=== PATIENT | female | born 1950 | race Caucasian/White ===

== ENCOUNTER 2017-08-29 21:34 | Emergency (ER) | payer OTHER, SELFPAY ==
--- NOTE | 2017-08-29 21:47 | DI.CT.S_ITS ---
PROCEDURE: CT HEAD/BRAIN WO CON INDICATIONS: seizure activity TECHNIQUE: Noncontrast 4.5 mm thick angled axial sections acquired from the foramen magnum to the vertex, with coronal and sagittal reformats. For radiation dose reduction, the following was used: automated exposure control, adjustment of mA and/or kV according to patient size. COMPARISON: Merged With [facility], MR, BRAIN WITHOUT CONTRAST, 12/17/2015, 17:40. Merged With [facility], CT, HEAD WITHOUT CONTRAST, 12/02/2015, 14:15. FINDINGS: Image quality: Excellent. CSF spaces: Basal cisterns are patent. No extra-axial fluid collections. The ventricles are symmetric in size and shape. Brain: No intracranial bleeds or masses. There is mild cerebral volume loss for age, with resultant ventricular and sulcal prominence. There are mild periventricular and deep white matter chronic small vessel ischemic changes. There is intracranial internal carotid artery atherosclerosis. Skull and face: Calvarium and visualized facial bones appear intact, without suspicious lesions. Sinuses: There is mucosal thickening and an air-fluid level in the left maxillary sinus. sinuses and mastoids are clear. IMPRESSION: 1. No acute intracranial abnormalities. No findings to explain seizure. 2. Cerebral volume loss and chronic microvascular ischemic changes. 3. Left maxillary sinusitis. No significant discrepancy with the shift production associate radiology preliminary report. Dictated by: Lata Tadeo M.D. on 08/30/2017 at 6:11 Approved by: Lata Tadeo M.D. on 08/30/2017 at 10:32
[2017-08-29] MEDS: LORazepam 2 MG/ML SYRINGE 4 MG IV (21:48)
[2017-08-29 21:49] VITALS: BP 195/84; PULSE 101; RESP 14; TEMP 37; O2SAT 93; BMI 24.1
--- NOTE | 2017-08-29 21:58 | PC.NURSE ---
2133: Code Stroke called on arrival to room for R facial droop, incomprehensible garbled speech, and RUE weakness, pt obeying simple commands. With h/o seizures and takes Keppra daily. Dr torres at bedside. About 2137 pt started to have seizure like activity with mild tonic clonic movement. pt placed on side and NRB at 15L/min applied. Given Ativan 2mg IVP and seizure pads in place. Pt started to calm. Airway suctioned. Dr Torres remains at side, placed on monitor and blood drawn. Hypertensive with BP 195/84. ST 104. At 2147 2nd dose of Ativan 2mg given for seizure like activity, pt extremities became rigid and pupils constricted. 7.0 nasal trumpet placed by this RN in R nare for decreasing O2 sat. Pt tolerated well, 100% via NRB. Placed on portable monitor and assisted down to CT with REYNA Mendez and Joleen Raygoza RN. 2205: arrived back from CT and moved to 1. at side. Pt appears drowsy yet relaxed, no twitching noted. reports she takes her Keppra religiously and this is only the 2nd seizure she has had since November 2015. Airway suctioned for comfort. BP 166/68 HR 100 100% NRB
[2017-08-29] MEDS: levETIRAcetam 500 MG in SODIUM CHLORIDE 0.9% 100 ML 420 ML IV (22:12)
[2017-08-29 22:14] VITALS: RESP 16; O2SAT 100
[2017-08-29 22:16] LABS: Add Manual Diff / Slide Review NO; Alanine Aminotransferase 32 IU/L (9-52); Albumin 4.5 g/dL (3.5-5.0); Albumin Globulin Ratio 1.6 (1.0-2.8); Alkaline Phosphatase 70 U/L (38-126); Aspartate Aminotransferase 57 IU/L (14-36); BUN Creatinine Ratio 22.5 (6-22); Basophils Percent Auto 0.9 % (0-2); Bilirubin Total 0.4 mg/dL (0.2-1.3); Blood Urea Nitrogen 18 mg/dL (7-17); Calcium 9.1 mg/dL (8.4-10.2); Carbon Dioxide 26 mmol/L (22-32); Chloride 98 mmol/L (98-107); Eosinophils Percent Auto 3.1 % (2-4); Estimated Glomerular Filt Rate > 60.0 mL/min (>60); Globulin 2.9 g/dL (1.7-4.1); Glucose 178 mg/dL (80-110); HEMOLYSIS 19 (0-50); Hematocrit 43.3 % (36-46); Hemoglobin 14.4 g/dL (12.0-16.0); Lipase 74 U/L (23-300); Lymphocytes Percent Auto 41.2 % (25-40); Mean Corpuscular HGB Conc 33.3 % (30-36); Mean Corpuscular Hemoglobin 31.9 PG (26-34); Mean Corpuscular Volume 95.7 fL (80-100); Monocytes Percent Auto 6.9 % (3-14); Neutrophils Absolute Auto 7300 /uL (3000-5900); Neutrophils Percent Auto 47.9 % (50-75); Platelet Count 275 X10^3/uL (150-400); Potassium 3.5 mmol/L (3.4-5.1); Red Blood Cell Count 4.53 X10^6/uL (4.0-5.2); Red Cell Distribution Width 12.7 % (11.6-14.8); Sodium 138 mmol/L (137-145); Total Protein 7.4 g/dL (6.3-8.2); White Blood Cell Count 15.2 X10^3/uL (4.5-11.0)
[2017-08-29 22:18] VITALS: BP 166/68; PULSE 102; RESP 20; O2SAT 100
--- NOTE | 2017-08-29 22:19 | ED_ITS ---
HPI - Seizure General Chief Complaint: Seizure Stated Complaint: Poss Seizure Time Seen by Provider: 08/29/17 21:59 Source: family and EMS Mode of arrival: EMS Limitations: altered mental status History of Present Illness HPI Narrative: 66-year-old female brought in by EMS for concerns of a possible seizure/stroke. Code stroke was called upon arrival secondary to her presentation. Upon my initial evaluation the patient did have what appeared to be a generalized tonic-clonic seizure. Her arrived shortly afterwards and provided more history. He states that the patient had what appeared to be focal seizures progressing to a generalized tonic-clonic seizure back at the end of 2015. He states that she saw a neurologist at that time and was placed on Keppra. He states that she is taking Keppra 500 mg 2 times a day. He states that she did take her medication today. He states that she has not had a seizure since then. Had an EEG performed at that time which he states ?was normal? she has not seen a neurologist since then. Her Keppra is managed by her primary care doctor. Patient's states that earlier today the patient described and a ?aura ?and 1 of her eyes. Patient also has a history of migraines. She states that as the day went on that or a improved however shortly before the events that brought her here to the emergency department she described an aura in the other eye. Uncertain as to what side this was. He states that shortly after this he thought that side of her face was drooping and she started to not acting normal. Was not responding to his questioning that he called EMS. Patient's blood sugar was greater than 100 per EMS report prior to arrival. No medications were given by EMS. Related Data Home Medications Medication Instructions Recorded Confirmed [Biest] 0.25 mg SUBLINGUAL BID #8 ml 12/29/16 Previous Rx's Medication Instructions Recorded lorazepam [Ativan] 0.5 mg PO Q6HP #5 tab 12/02/15 levothyroxine 0.05 mg PO QAM #90 tab 01/09/17 liothyronine [Cytomel] 5 mcg PO QAM #90 tab 01/09/17 [progesterone] 1 mg SEECOM BID #60 drp 02/21/17 levetiracetam [Keppra] 500 mg PO BID #180 tab 07/14/17 Allergies Allergy/AdvReac Type Severity Reaction Status Date / Time Sulfa (Sulfonamide Allergy Unknown Unverified 07/12/17 12:27 Antibiotics) [SULFA (SULFONAMIDE ANTIBIOTICS)] Review of Systems Review of Systems Unable to obtain review of systems from the patient secondary to clinical condition. Review of systems provided by are in HPI. unobtainable due to mental condition PFSH Surgical History Status post hysterectomy with oophorectomy Family History Grandmother Heart disease Exam Initial Vital Signs Initial Vital Signs: Vital Signs Temperature 98.6 F 08/29/17 21:49 Pulse Rate 101 H 08/29/17 21:49 Respiratory Rate 14 08/29/17 21:49 Blood Pressure 195/84 H 08/29/17 21:49 Pulse Oximetry 93 08/29/17 21:49 Const General: well developed, well groomed and in distress Nutritional Appearance: average body habitus Orientation: confused Limitations: altered mental status HENID Head: normal to inspection, normocephalic and atraumatic Resp Effort & Inspection: normal respiratory effort, able to speak in complete sentences, no respiratory distress and no use of accessory muscles Auscultation: clear to auscultation bilaterally, no rales, no rhonchi and no wheezes Cardio Rate: regular rate Rhythm: regular rhythm Heart Sounds: no click, no gallops, no murmurs and no rubs Pulses: normal peripheral pulses GI Inspection: normal to inspection Palpation: soft Skin General: no rashes or lesions noted, No jaundice and No petechiae Neuro Other: Patient unable to answer questions Did not follow commands Did spontaneously move all 4 extremities during my initial evaluation however there was some question as to whether not this was purposeful movements She would not squeeze her hands to command Would not move her legs to command Extrem General: normal to inspection and capillary refill normal Psych Appearance: grossly normal and well kempt Course Orders Ordered: ED Orders 08/29/17 21:45 Complete Blood Count AUTO DIFF Stat Comprehensive Metabolic Panel Stat Lipase Stat Prolactin Stat 08/29/17 21:47 CT head/brain wo con Stat 08/29/17 22:10 Ammonia (NH3) Stat Discontinued Medications Levetiracetam 500 mg/ Sodium (Chloride) 105 mls @ 420 mls/hr IV NOW ONE Stop: 08/29/17 21:48 Last Infusion: 08/29/17 22:33 Dose: 0 mls/hr Admin: 08/29/17 22:12 Dose: 420 mls/hr Lorazepam (Ativan) 4 mg IV NOW ONE Stop: 08/29/17 22:01 Last Admin: 08/29/17 21:48 Dose: 4 mg Vital Signs - 8 hr 08/29/17 21:49 08/29/17 22:14 08/29/17 22:18 Temperature 98.6 F Pulse Rate 101 H 102 H Respiratory Rate 14 16 20 Blood Pressure 195/84 H Blood Pressure [Left Arm] 166/68 H Pulse Oximetry 93 100 100 08/29/17 22:36 08/29/17 23:45 08/30/17 00:21 Temperature Pulse Rate 98 H 96 H 80 Respiratory Rate 20 25 H 29 H Blood Pressure Blood Pressure [Left Arm] 148/67 H 138/61 H 131/61 H Pulse Oximetry 100 92 93 MDM - Seizure Lab Data Attestation: I reviewed the patient's lab results. Result diagrams: 08/29/17 21:45 08/29/17 21:45 Lab Results 08/29/17 08/29/17 08/29/17 Range/Units 21:45 21:45 22:10 WBC 15.2 H (4.5-11.0) X10^3/uL RBC 4.53 (4.0-5.2) X10^6/uL Hgb 14.4 (12.0-16.0) g/dL Hct 43.3 (36-46) % MCV 95.7 (80-100) fL MCH 31.9 (26-34) PG MCHC 33.3 (30-36) % RDW 12.7 (11.6-14.8) % Plt Count 275 (150-400) X10^3/uL Neut % (Auto) 47.9 L (50-75) % Lymph % (Auto) 41.2 H (25-40) % [place] % (Auto) 6.9 (3-14) % Eos % (Auto) 3.1 (2-4) % Baso % (Auto) 0.9 (0-2) % Neut # (Auto) 7300 H (6703-7284) /uL Sodium 138 (137-145) mmol/L Potassium 3.5 (3.4-5.1) mmol/L Chloride 98 (98-107) mmol/L Carbon Dioxide 26 (22-32) mmol/L BUN 18 H (7-17) mg/dL Creatinine 0.80 (0.52-1.04) mg/dL Estimated GFR > 60.0 (>60) mL/min BUN/Creatinine Ratio 22.5 H (6-22) Glucose 178 H (80-110) mg/dL Calcium 9.1 (8.4-10.2) mg/dL Total Bilirubin 0.4 (0.2-1.3) mg/dL AST 57 H (14-36) IU/L ALT 32 (9-52) IU/L Alkaline Phosphatase 70 (38-126) U/L Ammonia 15.0 (9-30) umol/L Total Protein 7.4 (6.3-8.2) g/dL Albumin 4.5 (3.5-5.0) g/dL Globulin 2.9 (1.7-4.1) g/dL Albumin/Globulin Ratio 1.6 (1.0-2.8) Lipase 74 (23-300) U/L Prolactin 114.5 H (3.0-18.6) ng/mL Imaging Data CT scan - head: Radiologist's impression: No acute abnormality Chronic microvascular disease MDM Narrative Medical decision making narrative: Some concern initially upon arrival of a stroke and a code stroke was called however during my initial evaluation patient did progress to have a generalized tonic-clonic seizure. She was given 2 mg of Ativan IV. This did seem to slow the seizures however she did seem fairly rigid and had occasional rhythmic motion specifically noted in her right lower extremity. Two more mg of Ativan was given IV which seemed to resolve those symptoms. She was also given 500 mg of Keppra IV. provided much of the history. Secondary to the history and her physical exam and a negative head CT I have lower concern for CVA. Will hold on tPA. Will hold on neurology /stroke consult for now. Patient was sedated afterwards most likely secondary to being postictal and also the Ativan. Discussed the case with at [facility] who accepts the patient in transfer. Patient is stable for transport. Discussed transport with the who expressed understanding and agreement. Discharge Plan Departure Patient Disposition: [facility] Clinical Impression: Observed seizure-like activity Prescriptions: No Action lorazepam [Ativan] 0.5 MG tablet 0.5 mg PO Q6HP Qty: 5 RF: 0 [Biest] 0.25 mg Sublingual BID Qty: 8 RF: 12 liothyronine [Cytomel] 5 MCG tablet 5 mcg PO QAM Qty: 90 RF: 3 levothyroxine 50 MCG tablet 0.05 mg PO QAM Qty: 90 RF: 3 [progesterone] 1 mg SEECOM BID Qty: 60 RF: 11 levetiracetam [Keppra] 500 MG tablet 500 mg PO BID Qty: 180 RF: 1
--- NOTE | 2017-08-29 22:27 | PC.NURSE ---
Pt placed on ETCO2 upon moving into Rm 1. Range between 30-41. Keppra infusion complete.
[2017-08-29 22:33] LABS: Prolactin 114.5 ng/mL (3.0-18.6)
[2017-08-29 22:36] VITALS: BP 148/67; PULSE 98; RESP 20; O2SAT 100
[2017-08-29 23:45] VITALS: BP 138/61; PULSE 96; RESP 25; O2SAT 92
[2017-08-30 00:21] VITALS: BP 131/61; PULSE 80; RESP 29; O2SAT 93
[2017-08-30] MEDS: LORazepam 2 MG/ML SYRINGE IV (00:45)
[2017-08-30 01:15] VITALS: BP 136/64; PULSE 80; RESP 21; O2SAT 95
--- NOTE | 2017-08-30 01:36 | PC.NURSE ---
Dr Torres aware of CO2
[2017-08-30 01:45] LABS: HCO3 ABG 29 mmol/L (23-27); PCO2 ABG 50.5 mmHg (35-45); PO2 ABG 71 mmHg (80-105); TCO2 ABG 31 mmol/L (23-27); pH ABG 7.37 (7.35-7.45)
[2017-08-30 01:46] LABS: Oxygen Saturation ABG 93 % (95-100)
[2017-09-14 16:05] LABS: Fractionated Inspired Oxygen 40
== END 2017-08-30 01:25 | disposition short-term general hospital (02) ==
PROVIDERS: Emergency Provider Emergency Medicine; Family Provider Family Medicine; PCP Family Medicine
DX: R56.9 Unspecified convulsions (principal)
CPT/HCPCS: 36415; 36600; 70450; 80053; 82140; 82805; 83690; 84146; 85025; 93041; 96365; 96375; 96376; 99285; 99291; 99292; J1953; J2060

== ENCOUNTER → 2017-10-11 12:00 | Outpatient (CLI) | payer OTHER, SELFPAY ==
[2017-10-11 12:44] LABS: Hemoglobin A1C% w Est Avg Glu 5.2 % (4.0-6.0)
== END ==
PROVIDERS: Family Provider Family Medicine; PCP Family Medicine; Visit Provider Internal Medicine
DX: R73.9 Hyperglycemia, unspecified (principal)
CPT/HCPCS: 36415; 83036

== ENCOUNTER 2017-10-30 18:57 | Emergency (ER) | payer OTHER, SELFPAY ==
[2017-10-30 19:09] VITALS: BP 180/79; PULSE 73; RESP 16; TEMP 36.6; O2SAT 100; BMI 21.9
--- NOTE | 2017-10-30 19:20 | ED_ITS ---
HPI - General Adult <Tressa Hernandez PA-C - Last Filed: 10/30/17 22:09> General Chief complaint: Hypertension Stated complaint: STATES ELEVATED BLOOD PRESSURE Time Seen by Provider: 10/30/17 19:16 Source: patient, family and old records reviewed Mode of arrival: ambulatory Limitations: no limitations History of Present Illness HPI narrative: This 67-year-old female comes in today with complaint of elevated blood pressure and ?I just do not feel right?. She states that her blood pressure was 193/87 at home this morning. She has been on amlodipine for 2-3 weeks for hypertension, and has been taking 5 mg at HS, took another 5 mg this morning. She denies any new chest pain (states she has some chronic pain associated with her fibromyalgia but none today), dyspnea, or palpitations. She denies any abdominal pain or vomiting. She has had some ongoing mild nausea and what she describes as lightheadedness, just not quite feeling like herself. These occur intermittently. She cannot think of specific exacerbating or alleviating factors. She has been eating normally. She states that this does not correlate with starting the amlodipine. She started higher dose of Keppra, 1000 mg b.i.d., 2 months ago, and her thinks that the symptoms probably correlate time pavon with that dose increase as he states these have been occurring since hospital discharge. She has not had recurrent seizure. She has not had any focal weakness, difficulty with speech, swallowing, coordination , or vision change. She denies any new pain or swelling in her extremities. She states that she has had some increased bowel gas, no change in bowel movements or other new complaints on systems review. Blood pressure at her primary care clinic visit 10/11 noted 184/95. Related Data Home Medications Medication Instructions Recorded Confirmed [Biest] 0.25 mg SUBLINGUAL BID #8 ml 12/29/16 10/11/17 Previous Rx's Medication Instructions Recorded levothyroxine 0.05 mg PO QAM #90 tab 01/09/17 liothyronine [Cytomel] 5 mcg PO QAM #90 tab 01/09/17 [progesterone] 1 mg SEECOM BID #60 drp 02/21/17 levetiracetam 1,000 mg tablet 1,000 mg PO Q12H #60 tab 09/06/17 amlodipine 5 mg tablet 5 mg PO DAILY #30 tab 10/11/17 Allergies Allergy/AdvReac Type Severity Reaction Status Date / Time Sulfa (Sulfonamide Allergy Unknown Verified 10/11/17 10:46 Antibiotics) [SULFA (SULFONAMIDE ANTIBIOTICS)] Review of Systems <Tressa Hernandez PA-C - Last Filed: 10/30/17 22:09> Review of Systems All systems reviewed & are unremarkable except as noted in HPI and below PFSH <Tressa Hernandez PA-C - Last Filed: 10/30/17 22:09> Comment: Thirty pack-years tobacco, quit approximately 1999. ETOH 1-3 daily, regular THC use Exam <CHARIS Vargas Last Filed: 10/30/17 22:09> Narrative Exam Narrative: GENERAL APPEARANCE: Patient sitting comfortably, in no distress. HEENT: PERRL, EOMI NECK/THYROID: Neck supple, no JVD. LUNGS: Clear to auscultation bilaterally. HEART: Regular rate and rhythm without murmur, normal S1, S2, no S3 or S4. ABDOMEN: Soft, NT, ND, + BS x 4 quadrants EXTREMITIES: No cyanosis or edema. No calf tenderness NEUROLOGIC: Alert and oriented, normal speech and coordination. DERM: No exanthem Initial Vital Signs Initial Vital Signs: Vital Signs Temperature 97.9 F 10/30/17 19:09 Pulse Rate 73 10/30/17 19:09 Respiratory Rate 16 10/30/17 19:09 Blood Pressure 180/79 H 10/30/17 19:09 Pulse Oximetry 100 10/30/17 19:09 <Lorena Hannon DO - Last Filed: 10/31/17 04:10> Initial Vital Signs Initial Vital Signs: Vital Signs Temperature 97.9 F 10/30/17 19:09 Pulse Rate 73 10/30/17 19:09 Respiratory Rate 16 10/30/17 19:09 Blood Pressure 180/79 H 10/30/17 19:09 Pulse Oximetry 100 10/30/17 19:09 Scores <CHARIS Vargas Last Filed: 10/30/17 22:09> ABCD2 Age >= 60 years: yes Course <CHARIS Vargas Last Filed: 10/30/17 22:09> Additional Information: Patient was asymptomatic here aside from a brief episode of nausea which resolved with Zofran. Her EKG was repeated and no acute changes. She does have elevated blood pressure, not sure whether this is correlated with increasing her Keppra but she has been intermittently symptomatic for at least a month per her history, 2 per her 's recollection. Her nausea and lightheadedness appear to correlate time pavon with her dose change. She is concerned that there could be another source, however given the longevity of her symptoms and lack of acute findings today, advised reasonable for her to return home with outpatient follow-up. She is agreeable with plan to return if any acutely worsening symptoms. Advised to work with her PCP to determine whether perhaps she can be monitored with a smaller dose of Keppra, and whether any further workup is needed such as a Holter monitor or further cardiac w/u given her age and BP. Orders Ordered: ED Orders 10/30/17 19:19 EKG-12 Lead Stat 10/30/17 20:11 Complete Blood Count AUTO DIFF Stat Comprehensive Metabolic Panel Stat Troponin & CK Cardiac Panel Stat 10/30/17 21:02 EKG-12 Lead Stat Discontinued Medications Ondansetron HCl (Zofran Odt) 4 mg PO NOW ONE Stop: 10/30/17 20:52 Last Admin: 10/30/17 20:53 Dose: 4 mg Vital Signs - 8 hr 10/30/17 20:25 10/30/17 21:39 Temperature 97.6 F Pulse Rate 55 L 60 Respiratory Rate 18 16 Blood Pressure [Left Arm] 145/66 H 180/56 H Pulse Oximetry 100 97 <Lorena Hannon DO - Last Filed: 10/31/17 04:10> Orders Ordered: ED Orders 10/30/17 19:19 EKG-12 Lead Stat 10/30/17 20:11 Complete Blood Count AUTO DIFF Stat Comprehensive Metabolic Panel Stat Troponin & CK Cardiac Panel Stat 10/30/17 21:02 EKG-12 Lead Stat Discontinued Medications Ondansetron HCl (Zofran Odt) 4 mg PO NOW ONE Stop: 10/30/17 20:52 Last Admin: 10/30/17 20:53 Dose: 4 mg Vital Signs - 8 hr 10/30/17 20:25 10/30/17 21:39 Temperature 97.6 F Pulse Rate 55 L 60 Respiratory Rate 18 16 Blood Pressure [Left Arm] 145/66 H 180/56 H Pulse Oximetry 100 97 Medical Decision Making <Tressa Hernandez PA-C - Last Filed: 10/30/17 22:09> Lab Data Lab results reviewed: Yes I reviewed the patient's lab results. Result diagrams: 10/30/17 20:11 10/30/17 20:11 Lab Results 10/30/17 10/30/17 Range/Units 20:11 20:11 WBC 7.7 (4.5-11.0) X10^3/uL RBC 4.44 (4.0-5.2) X10^6/uL Hgb 14.2 (12.0-16.0) g/dL Hct 41.8 (36-46) % MCV 94.2 (80-100) fL MCH 31.9 (26-34) PG MCHC 33.9 (30-36) % RDW 12.8 (11.6-14.8) % Plt Count 271 (150-400) X10^3/uL Neut % (Auto) 79.3 H (50-75) % Lymph % (Auto) 13.9 L (25-40) % [place] % (Auto) 6.0 (3-14) % Eos % (Auto) 0.2 L (2-4) % Baso % (Auto) 0.6 (0-2) % Neut # (Auto) 6100 H (1051-4148) /uL Sodium 137 (137-145) mmol/L Potassium 4.2 (3.4-5.1) mmol/L Chloride 98 (98-107) mmol/L Carbon Dioxide 28 (22-32) mmol/L BUN 12 (7-17) mg/dL Creatinine 0.60 (0.52-1.04) mg/dL Estimated GFR > 60.0 (>60) mL/min BUN/Creatinine Ratio 20.0 (6-22) Glucose 108 (80-110) mg/dL Calcium 9.4 (8.4-10.2) mg/dL Total Bilirubin 0.6 (0.2-1.3) mg/dL AST 22 (14-36) IU/L ALT 18 (9-52) IU/L Alkaline Phosphatase 53 (38-126) U/L Total Creatine Kinase 89 (30-135) U/L Troponin I < 0.012 (0.01-0.034) ng/mL Total Protein 7.3 (6.3-8.2) g/dL Albumin 4.6 (3.5-5.0) g/dL Globulin 2.7 (1.7-4.1) g/dL Albumin/Globulin Ratio 1.7 (1.0-2.8) ECG Data Attestation: I personally reviewed and interpreted this ECG as follows: (EKG 1 NSR with rate 60, EKG to sinus bradycardia with rate 48, no acute change) Prior ECG tracings: available for review <Lorena Hannon, DO - Last Filed: 10/31/17 04:10> Lab Data Lab Results 10/30/17 10/30/17 Range/Units 20:11 20:11 WBC 7.7 (4.5-11.0) X10^3/uL RBC 4.44 (4.0-5.2) X10^6/uL Hgb 14.2 (12.0-16.0) g/dL Hct 41.8 (36-46) % MCV 94.2 (80-100) fL MCH 31.9 (26-34) PG MCHC 33.9 (30-36) % RDW 12.8 (11.6-14.8) % Plt Count 271 (150-400) X10^3/uL Neut % (Auto) 79.3 H (50-75) % Lymph % (Auto) 13.9 L (25-40) % [place] % (Auto) 6.0 (3-14) % Eos % (Auto) 0.2 L (2-4) % Baso % (Auto) 0.6 (0-2) % Neut # (Auto) 6100 H (3794-2796) /uL Sodium 137 (137-145) mmol/L Potassium 4.2 (3.4-5.1) mmol/L Chloride 98 (98-107) mmol/L Carbon Dioxide 28 (22-32) mmol/L BUN 12 (7-17) mg/dL Creatinine 0.60 (0.52-1.04) mg/dL Estimated GFR > 60.0 (>60) mL/min BUN/Creatinine Ratio 20.0 (6-22) Glucose 108 (80-110) mg/dL Calcium 9.4 (8.4-10.2) mg/dL Total Bilirubin 0.6 (0.2-1.3) mg/dL AST 22 (14-36) IU/L ALT 18 (9-52) IU/L Alkaline Phosphatase 53 (38-126) U/L Total Creatine Kinase 89 (30-135) U/L Troponin I < 0.012 (0.01-0.034) ng/mL Total Protein 7.3 (6.3-8.2) g/dL Albumin 4.6 (3.5-5.0) g/dL Globulin 2.7 (1.7-4.1) g/dL Albumin/Globulin Ratio 1.7 (1.0-2.8) Discharge Plan Departure Patient Disposition: Home, Self-Care Clinical Impression: Hypertension, Intermittent lightheadedness Discharge Date/Time: 10/30/17 21:49 Interventions: ED Discharge Assessment Last Done: 10/30/17 21:48 Instructions: DI for High Blood Pressure, DI for Nausea -- Adult Activity Restrictions/Additional Instructions: You should return as we talked about if you have any acutely worsening symptoms. Otherwise, please see your PCP in the next 2-3 days to discuss her medications and whether you should make any changes. There are not any acute findings on your testing today, however your symptoms need to be addressed. Please talk with your PCP about whether to make any changes in your anti seizure medication since you have been noticing the lightheadedness and nausea off and on seemingly since the dose was increased. Your medication can also cause high blood pressure in some patients. Your PCP may want to do further testing such as a heart monitor as well since your heart rate tends to be on the slow side. It is okay if you want to continue taking your amlodipine twice daily until you follow up with your PCP. If you monitor your home blood pressures, please make sure you are seated and relaxed for 15 min with your arm resting comfortably at your side prior to taking this. Prescriptions: No Action [Biest] 0.25 mg Sublingual BID Qty: 8 RF: 12 liothyronine [Cytomel] 5 MCG tablet 5 mcg PO QAM Qty: 90 RF: 3 levothyroxine 50 MCG tablet 0.05 mg PO QAM Qty: 90 RF: 3 [progesterone] 1 mg SEECOM BID Qty: 60 RF: 11 amlodipine 5 mg tablet 5 mg PO DAILY Qty: 30 RF: 1 levetiracetam 1,000 mg tablet 1,000 mg PO Q12H Qty: 60 RF: 0 Referrals: Prieto Pederson MD [Physician] - <Lorena Hannon DO - Last Filed: 10/31/17 04:10> Cosign ED Attending Thang Attestation: I was immediately available in the department for consultation. Documentation has been reviewed. I agree with assessment and plan.
--- NOTE | 2017-10-30 19:28 | PC.NURSE ---
pt reports elevated bp x3 weeks upper 170s, seen by pcp for same, taking amlodipine as prescribed, to [facility] alicea r/t got up to 190, reports a normal day at work today, denies cp/soa/cough/dizziness/headache/nausea/vomiting/diarrhea/dysuria/fever or other sx, amb with steady gait, speaking in full sentences, appears well, no periph edema on exam
[2017-10-30 20:17] LABS: Add Manual Diff / Slide Review NO; Basophils Percent Auto 0.6 % (0-2); Eosinophils Percent Auto 0.2 % (2-4); Hematocrit 41.8 % (36-46); Hemoglobin 14.2 g/dL (12.0-16.0); Lymphocytes Percent Auto 13.9 % (25-40); Mean Corpuscular HGB Conc 33.9 % (30-36); Mean Corpuscular Hemoglobin 31.9 PG (26-34); Mean Corpuscular Volume 94.2 fL (80-100); Neutrophils Absolute Auto 6100 /uL (3000-5900); Neutrophils Percent Auto 79.3 % (50-75); Platelet Count 271 X10^3/uL (150-400); Red Blood Cell Count 4.44 X10^6/uL (4.0-5.2); Red Cell Distribution Width 12.8 % (11.6-14.8); White Blood Cell Count 7.7 X10^3/uL (4.5-11.0)
[2017-10-30 20:25] VITALS: BP 145/66; PULSE 55; RESP 18; TEMP 36.4; O2SAT 100
[2017-10-30 20:27] LABS: Alanine Aminotransferase 18 IU/L (9-52); Albumin 4.6 g/dL (3.5-5.0); Albumin Globulin Ratio 1.7 (1.0-2.8); Alkaline Phosphatase 53 U/L (38-126); Aspartate Aminotransferase 22 IU/L (14-36); Bilirubin Total 0.6 mg/dL (0.2-1.3); Blood Urea Nitrogen 12 mg/dL (7-17); Calcium 9.4 mg/dL (8.4-10.2); Carbon Dioxide 28 mmol/L (22-32); Chloride 98 mmol/L (98-107); Creatine Kinase 89 U/L (30-135); Estimated Glomerular Filt Rate > 60.0 mL/min (>60); Globulin 2.7 g/dL (1.7-4.1); Glucose 108 mg/dL (80-110); HEMOLYSIS < 15 (0-50); Potassium 4.2 mmol/L (3.4-5.1); Sodium 137 mmol/L (137-145); Total Protein 7.3 g/dL (6.3-8.2)
[2017-10-30 20:42] LABS: Troponin I < 0.012 ng/mL (0.01-0.034)
[2017-10-30] MEDS: ONDANSETRON 4 MG ODT PO (20:53)
--- NOTE | 2017-10-30 20:53 | PC.NURSE ---
Pt reporting some waves of nausea. David made aware. Pt given ODT zofran and an emesis bag. Resting in bed. Advised she is allowed to take her oral Keppra but she should wait 15 minutes until after the ODT zofran to decrease the chance of vomiting
[2017-10-30 21:39] VITALS: BP 180/56; PULSE 60; RESP 16; O2SAT 97
== END 2017-10-30 21:49 | disposition home or self-care (01) ==
PROVIDERS: Emergency Provider Internal Medicine; Family Provider Family Medicine; PCP Family Medicine
DX: I10 Essential (primary) hypertension (principal); R42 Dizziness and giddiness
CPT/HCPCS: 36415; 80053; 82550; 82553; 84484; 85025; 93005; 93010; 99282; 99284

== ENCOUNTER 2020-07-18 13:31 | Emergency (ER) | payer OTHER, SELFPAY ==
[2020-07-18] VITALS (19 sets, daily range): BP systolic 91–148; BP diastolic 45–72; PULSE 48–71; RESP 20–42; TEMP 36.4; O2SAT 92–100
--- NOTE | 2020-07-18 13:44 | ED_ITS ---
HPI - Seizure General Chief Complaint: Seizure Stated Complaint: Seizure Time Seen by Provider: 07/18/20 13:36 Source: patient, family and EMS Mode of arrival: EMS Limitations: altered mental status History of Present Illness HPI Narrative: This is a 69-year-old female with known seizure disorder. 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 She was found to be drooling. Patient was visualized by EMS and had Kanwal with her head turned to the side that would resolve after a couple minutes. This occurred intermittently for approximately 10 minutes in EMS is present. They gave her Versed 3 mg and she has not had any further seizure-like activity. Patient has continued to be altered upon arrival. states she takes the generic of Keppra 100 mg b.i.d. and Vimpat 1 tablet in the morning and 1.5 tablets in the evening. Patient had her 1st seizure a little over 4 years ago, her most recent seizure was 2-1/2 years ago. She follows with Neurology most recently seen Dr. Stone. Related Data Home Medications Medication Instructions Recorded Confirmed [Biest] 0.25 mg SUBLINGUAL BID #8 ml 12/29/16 11/22/17 Previous Rx's Medication Instructions Recorded levothyroxine 0.05 mg PO QAM #90 tab 01/09/17 liothyronine [Cytomel] 5 mcg PO QAM #90 tab 01/09/17 [progesterone] 1 mg SEECOM BID #60 drp 02/21/17 amlodipine 5 mg tablet 5 mg PO DAILY #90 tab 12/11/17 levetiracetam 1,000 mg tablet 1,000 mg PO Q12H #60 tab 12/12/17 Allergies Allergy/AdvReac Type Severity Reaction Status Date / Time Sulfa (Sulfonamide Allergy Unknown Verified 07/18/20 13:41 Antibiotics) [SULFA (SULFONAMIDE ANTIBIOTICS)] Review of Systems Review of Systems ROS Unobtainable: Unobtainable due to mental status/LOC Patient History Medical History Fibromyalgia (~1993) Hayfever Hypothyroidism Measles Migraines Osteoarthritis Osteoporosis RLS (restless legs syndrome) Seizures (2015) Shoulder pain Surgical History Anesthesia Status post hysterectomy with oophorectomy (1997) Family History (Updated 10/31/17 @ 16:37 by Yanna Manzo) Grandmother Heart disease NC (myocardial infarction) Mother Heart disease NC (myocardial infarction) Brother No problems noted. Brother No problems noted. Father No problems noted. Grandfather No problems noted. Social History Smoking Status: Former smoker Smoking Status: Former smoker Exam Narrative Exam Narrative: GEN: well nourished, elderly female, patient does open her eyes to verbal stimuli but does not respond to words or command, patient appears to be in mild distress. HEENT: Atraumatic, pupils are equal round reactive to light, extraocular movements are intact, nares are clear, TMs are clear with no fluid.. Throat is clear without any exudates, erythema, tonsillar enlargement or uvular deviation, no oral lacerations noted, no meningeal signs. HEART: Regular rate and rhythm without murmur, clicks, rubs. Pulses are equal in upper and lower extremities LUNGS:Lungs clear to auscultation, no wheezes, rales, crackles, chest moves symmetrically, no tachypnea or accessory muscle use. ABD:bowel sounds normal, soft, non-tender, no guarding, rebound, rigidity, no masses noted, no hepatosplenomegaly, nondistended. :No CVA tenderness MSCL: Non-tender, no muscle atrophy, patient does not follow commands to evaluate muscular strength but does have independent movement of her upper and lower extremities. NEURO:CN 2-12 intact, sensation normal, reflexes 2/4 upper and lower extremities. SKIN: No rash, erythema or skin changes appreciated. No ecchymosis is noted. Initial Vital Signs Initial Vital Signs: Vital Signs Temperature 97.6 F 07/18/20 13:38 Pulse Rate 70 07/18/20 13:38 Respiratory Rate 20 07/18/20 13:38 Blood Pressure 148/72 H 07/18/20 13:38 Pulse Oximetry 92 07/18/20 13:38 Scores GCS [place] coma scale eye opening: Spontaneous [place] coma scale verbal response: None [place] coma scale motor response: Localising Xenia coma scale total score: 10 Course Orders Ordered: ED Orders 07/18/20 13:35 Basic Metabolic Panel Stat Complete Blood Count AUTO DIFF Stat Magnesium Stat Prolactin Stat Troponin & CK Cardiac Panel Stat 07/18/20 13:43 EKG-12 Lead Stat 07/18/20 14:08 Urinalysis Screen (Dip Only) Stat Urine Drug Screen, Rapid Stat 07/18/20 14:38 CT head/brain wo con Stat 07/18/20 16:30 Troponin I Stat 07/18/20 17:41 COVID19 -Nasal swab/Pre-Proc Stat Discontinued Medications Levetiracetam 1,500 mg/ Sodium (Chloride) 115 mls @ 460 mls/hr IV NOW ONE Stop: 07/18/20 13:44 Last Infusion: 07/18/20 14:13 Dose: 0 mls/hr Documented by: Admin: 07/18/20 13:55 Dose: 460 mls/hr Documented by: SHALA Sodium Chloride (Normal Saline 0.9%) 1,000 mls @ 1,000 mls/hr IV BOLUS ONE Stop: 07/18/20 14:42 Last Infusion: 07/18/20 14:51 Dose: 0 mls/hr Documented by: Admin: 07/18/20 13:56 Dose: 1,000 mls/hr Documented by: SHALA Lorazepam (Lorazepam 2 Mg/Ml Inj) 1 mg IV NOW ONE Stop: 07/18/20 14:28 Last Admin: 07/18/20 15:00 Dose: 1 mg Documented by: LOULOU Reevaluation(s) Reevaluation #1: patient having seizure activity with twitching of face and rigidity of upper extremities noted. Keppra running. Ativan 1mg given. Symptoms resolved shortly thereafter. Time: 14:28 Reevaluation #2: Patient appears to be sleeping. No visualized seizure act ivity. Time: 16:21 Consultations Consultation #1: Dr. Cerda would like for consultation with Neurology prior to decision to accept patient for the floor versus going to the ICU. We did discuss patient has not return to baseline but has also had 3 mg of Versed in addition with 1 mg Ativan the last dosage was an hour prior 1500. We have not had any witnessed obvious seizure activity but do not have access EEG here at [facility]. Time: 16:08 Consultation #2: Discussed with Dr. Walters from neurology ([facility]). Reviewed todays findings. Would recommend Valproic acid 500mg IV if recurrent seizure like activity. She is going to discuss with the hospitalist service to see if they can monitor patient adequately at [facility] if not she would recommend either [facility] or [facility]. Time: 16:18 Consultation #3: Dr. Albert accepts for transfer. She does ask that we call and update if patient receives any additional medications. Did note that patient's troponin had bumped up to indeterminate range of 0.052. Neurology recommendations including loading patient with lacosamide 100 mg IV which we do not have available here and that they recommend loading that at [facility]. Time: 17:28 Additional Consultation(s): !705-Dr. Acosta neurology ([facility]) recommends transfer to [place] and if available at our facility to load patient with Lacosamide 100mg IV. If unavailable they will load there but asks to note was not given here. Vital Signs Vital signs: Vital Signs - 8 hr 07/18/20 13:38 07/18/20 13:57 07/18/20 14:00 Temperature 97.6 F Pulse Rate 70 71 66 Respiratory Rate 20 20 24 Blood Pressure 148/72 H 138/63 Pulse Oximetry 92 99 99 07/18/20 14:30 07/18/20 14:56 07/18/20 15:00 Temperature Pulse Rate 64 60 69 Respiratory Rate 24 23 27 H Blood Pressure 142/65 H 125/61 126/61 Pulse Oximetry 100 100 100 07/18/20 15:30 07/18/20 15:31 07/18/20 16:00 Temperature Pulse Rate 58 L 51 L 50 L Respiratory Rate 25 H 23 24 Blood Pressure 121/58 L Pulse Oximetry 100 100 98 07/18/20 16:01 07/18/20 16:05 07/18/20 16:30 Temperature Pulse Rate 50 L 56 L 48 L Respiratory Rate 24 25 H 24 Blood Pressure 91/45 L 108/58 L 123/60 Pulse Oximetry 98 98 100 07/18/20 17:00 07/18/20 17:30 07/18/20 18:00 Temperature Pulse Rate 60 53 L 50 L Respiratory Rate 23 42 H 25 H Blood Pressure 138/65 114/54 L 119/58 L Pulse Oximetry 100 98 98 07/18/20 18:30 Temperature Pulse Rate 49 L Respiratory Rate 25 H Blood Pressure 113/55 L Pulse Oximetry 98 MDM - Seizure Lab Data Attestation: I reviewed the patient's lab results. Result diagrams: 07/18/20 13:35 07/18/20 13:35 Labs: Lab Results 07/18/20 07/18/20 07/18/20 Range/Units 13:35 13:35 13:35 WBC 8.1 (4.5-11.0) X10^3/uL RBC 4.24 (4.0-5.2) X10^6/uL Hgb 14.0 (12.0-16.0) g/dL Hct 41.6 (36-46) % MCV 98.2 (80-100) fL MCH 32.9 (26-34) PG MCHC 33.5 (30-36) % RDW 12.7 (11.6-14.8) % Plt Count 206 (150-400) X10^3/uL Neut % (Auto) 78.7 H (50-75) % Lymph % (Auto) 13.9 L (25-40) % [place] % (Auto) 6.3 (3-14) % Eos % (Auto) 0.7 L (2-4) % Baso % (Auto) 0.4 (0-2) % Neut # (Auto) 6400 (1893-2283) /uL Lymph # (Auto) 1100 (8975-9687) /uL [place] # (Auto) 500 (0-900) /uL Eos # (Auto) 100 (0-450) /uL Baso # (Auto) 0 (0-100) /uL Sodium 135 L (137-145) mmol/L Potassium 4.1 (3.4-5.1) mmol/L Chloride 102 (98-107) mmol/L Carbon Dioxide 22 (22-32) mmol/L BUN 17 (7-17) mg/dL Creatinine 0.70 (0.52-1.04) mg/dL Estimated GFR > 60.0 (>60) mL/min BUN/Creatinine Ratio 24.3 H (6-22) Glucose 165 H (80-110) mg/dL Calcium 9.4 (8.4-10.2) mg/dL Magnesium 2.0 (1.6-2.3) mg/dL Total Creatine Kinase 78 (30-135) U/L CK-MB (CK-2) TNP CK-MB (CK-2) Rel Index TNP Troponin I < 0.012 (0.01-0.034) ng/mL Prolactin 62.5 H (3.0-18.6) ng/mL Urine Color Urine Appearance Urine pH (4.5-8.0) Ur Specific [place] (1.000-1.035) Urine Protein (Negative) Urine Glucose (UA) (Negative) g/dL Urine Ketones (NEGATIVE) Urine Occult Blood (Negative) Urine Nitrate (Negative) Urine Bilirubin (NEGATIVE) Urine Urobilinogen (0.2) E.U./dL Ur Leukocyte Esterase (NEGATIVE) U Opiates 300ng/mL cut (Negative) Ur Oxycodone Screen (Negative) Urine Methadone Screen (Negative) Ur Barbiturates Screen (Negative) U Tricyclic Antidepress (Negative) Ur Phencyclidine Scrn (Negative) Ur Amphetamines Screen (Negative) U Methamphetamines Scrn (Negative) Ur MDMA Scrn (Ecstasy) (Negative) U Benzodiazepines Scrn (Negative) Urine Cocaine Screen (Negative) U Marijuana (THC) Screen (Negative) SARS-CoV-2 (PCR) (Negative) 07/18/20 07/18/20 07/18/20 Range/Units 14:08 14:08 16:30 WBC (4.5-11.0) X10^3/uL RBC (4.0-5.2) X10^6/uL Hgb (12.0-16.0) g/dL Hct (36-46) % MCV (80-100) fL MCH (26-34) PG MCHC (30-36) % RDW (11.6-14.8) % Plt Count (150-400) X10^3/uL Neut % (Auto) (50-75) % Lymph % (Auto) (25-40) % [place] % (Auto) (3-14) % Eos % (Auto) (2-4) % Baso % (Auto) (0-2) % Neut # (Auto) (7418-1667) /uL Lymph # (Auto) (3015-6573) /uL [place] # (Auto) (0-900) /uL Eos # (Auto) (0-450) /uL Baso # (Auto) (0-100) /uL Sodium (137-145) mmol/L Potassium (3.4-5.1) mmol/L Chloride (98-107) mmol/L Carbon Dioxide (22-32) mmol/L BUN (7-17) mg/dL Creatinine (0.52-1.04) mg/dL Estimated GFR (>60) mL/min BUN/Creatinine Ratio (6-22) Glucose (80-110) mg/dL Calcium (8.4-10.2) mg/dL Magnesium (1.6-2.3) mg/dL Total Creatine Kinase (30-135) U/L CK-MB (CK-2) CK-MB (CK-2) Rel Index Troponin I 0.052 H (0.01-0.034) ng/mL Prolactin (3.0-18.6) ng/mL Urine Color Yellow Urine Appearance Clear Urine pH 6.0 (4.5-8.0) Ur Specific [place] 1.020 (1.000-1.035) Urine Protein 1+ H (Negative) Urine Glucose (UA) Negative (Negative) g/dL Urine Ketones Negative (NEGATIVE) Urine Occult Blood Negative (Negative) Urine Nitrate Negative (Negative) Urine Bilirubin Negative (NEGATIVE) Urine Urobilinogen 0.2 (0.2) E.U./dL Ur Leukocyte Esterase Negative (NEGATIVE) U Opiates 300ng/mL cut Negative (Negative) Ur Oxycodone Screen Negative (Negative) Urine Methadone Screen Negative (Negative) Ur Barbiturates Screen Negative (Negative) U Tricyclic Antidepress Negative (Negative) Ur Phencyclidine Scrn Negative (Negative) Ur Amphetamines Screen Negative (Negative) U Methamphetamines Scrn Negative (Negative) Ur MDMA Scrn (Ecstasy) Negative (Negative) U Benzodiazepines Scrn Negative (Negative) Urine Cocaine Screen Negative (Negative) U Marijuana (THC) Screen Negative (Negative) SARS-CoV-2 (PCR) (Negative) 07/18/20 Range/Units 17:41 WBC (4.5-11.0) X10^3/uL RBC (4.0-5.2) X10^6/uL Hgb (12.0-16.0) g/dL Hct (36-46) % MCV (80-100) fL MCH (26-34) PG MCHC (30-36) % RDW (11.6-14.8) % Plt Count (150-400) X10^3/uL Neut % (Auto) (50-75) % Lymph % (Auto) (25-40) % [place] % (Auto) (3-14) % Eos % (Auto) (2-4) % Baso % (Auto) (0-2) % Neut # (Auto) (0125-1533) /uL Lymph # (Auto) (1427-2538) /uL [place] # (Auto) (0-900) /uL Eos # (Auto) (0-450) /uL Baso # (Auto) (0-100) /uL Sodium (137-145) mmol/L Potassium (3.4-5.1) mmol/L Chloride (98-107) mmol/L Carbon Dioxide (22-32) mmol/L BUN (7-17) mg/dL Creatinine (0.52-1.04) mg/dL Estimated GFR (>60) mL/min BUN/Creatinine Ratio (6-22) Glucose (80-110) mg/dL Calcium (8.4-10.2) mg/dL Magnesium (1.6-2.3) mg/dL Total Creatine Kinase (30-135) U/L CK-MB (CK-2) CK-MB (CK-2) Rel Index Troponin I (0.01-0.034) ng/mL Prolactin (3.0-18.6) ng/mL Urine Color Urine Appearance Urine pH (4.5-8.0) Ur Specific [place] (1.000-1.035) Urine Protein (Negative) Urine Glucose (UA) (Negative) g/dL Urine Ketones (NEGATIVE) Urine Occult Blood (Negative) Urine Nitrate (Negative) Urine Bilirubin (NEGATIVE) Urine Urobilinogen (0.2) E.U./dL Ur Leukocyte Esterase (NEGATIVE) U Opiates 300ng/mL cut (Negative) Ur Oxycodone Screen (Negative) Urine Methadone Screen (Negative) Ur Barbiturates Screen (Negative) U Tricyclic Antidepress (Negative) Ur Phencyclidine Scrn (Negative) Ur Amphetamines Screen (Negative) U Methamphetamines Scrn (Negative) Ur MDMA Scrn (Ecstasy) (Negative) U Benzodiazepines Scrn (Negative) Urine Cocaine Screen (Negative) U Marijuana (THC) Screen (Negative) SARS-CoV-2 (PCR) Negative (Negative) Point of Care Testing Glucose POC [address] scan - head: Radiologist's Impression: [address] [id number] Scan ReportSigned Patient: Dalia Mcallister DMR#: [id number]: 2Acct:[id number]/Sex: 69 / FDate of Service: 07/18/20Loc: EDAccession Number: [id number] Procedure: CT head/brain wo con Ordering Provider: January Durand D.O. PROCEDURE: CT HEAD/BRAIN WO CON INDICATIONS: seizure activity TECHNIQUE: Noncontrast 4.5 mm thick angled axial sections acquired from the foramen magnum to the vertex, with coronal and sagittal reformats. For radiation dose reduction, the following was used: automated exposure control, adjustment of mA and/or kV according to patient size. COMPARISON: [facility], CT, CT HEAD/BRAIN WO CON, 08/29/2017, 21:56. FINDINGS: Image quality: Excellent. CSF spaces: Basal cisterns are patent. No extra-axial fluid collections. Ventricles are normal in size and shape. Brain: No midline shift. No intracranial masses or hemorrhage. Alonzo-white matter interface is normal. There is mild cerebral volume loss for age with mild ventricular and sulcal prominence. There is mild periventricular and deep white matter hypoattenuation. These findings are not significantly changed from prior exam. Skull and face: Calvarium and visualized facial bones are intact, without suspicious lesions. Sinuses: Visualized sinuses and mastoids are clear. IMPRESSION: Findings of mild cerebral volume loss and microvascular ischemic changes not significantly changed from prior examination. No evidence of an acute intracranial abnormality or findings to explain seizure activity. Dictated by: Romeo Castano D.O. on 07/18/2020 at 14:32 Approved by: Romeo Castano D.O. on 07/18/2020 at 14:35 ECG Data Attestation: I personally reviewed and interpreted this ECG as follows: Interpretation: Sinus rhythm rate of 67 GA 164 QRS of 94 and QTC of 450. No acute ST changes appreciated. Patient does have some changes in 3 and AVF as well as V1 V2 which are present on prior EKG from 10/30/2017. MDM Narrative Medical decision making narrative: This is a 69-year-old female who has had 5 seizure-like episodes with one visualized in the department by myself and her . states this is her typical seizure-type activity. Patient's believes that she has been taking her medication regularly. She takes Keppra 1000 mg twice daily and Vimpat 1 tablet in the morning and 1.5 tablets in the evening but he is unclear on the dosage. Patient has not had any recent dosage changes. No obvious exacerbating factors other than they had their grandchildren visiting this weekend and there was a lot of ?excitement in the house? by patient's but no other clear exacerbating factors. Patient's head CT is negative, EKG shows no acute factors. Initial troponin is negative with recurrent troponin indeterminate. Patient does not have any acute signs of infection she has a mild leftward shift on her neutrophils but otherwise normal CBC. No electrolyte abnormalities, normal renal function. Patient's prolactin is elevated. Urine tox is negative. Not return to baseline in between events although she did receive a total of 3 mg of Versed in the field with EMS an additional 1 mg of Ativan in the department likely contributes to her decreased mental status. But with her frequent episodes of seizure-like activity plan to transfer. Discussed with Dr. Walters with neurology in [facility] who asks that we transfer to [facility] or [facility] as they can not continuously monitor. She felt they could not adequately watch the patient at their facility. I spoke with neurology at [facility] and the hospitalist, Dr. Albert who accepts for transfer. Patient was loaded with Keppra in the department. We do not have [place]asamine here and discussed with Dr. Albert that neurology recommends giving 100mg IV once patient arrives. Patient has had some improvement in her mental status although she still is having difficulty with speech and confusion. Discharge Plan Departure Patient Disposition: [facility] Clinical Impression: Seizure, Altered mental status Prescriptions: No Action [Biest] 0.25 mg Sublingual BID Qty: 8 RF: 12 liothyronine [Cytomel] 5 MCG tablet 5 mcg PO QAM Qty: 90 RF: 3 levothyroxine 50 MCG tablet 0.05 mg PO QAM Qty: 90 RF: 3 [progesterone] 1 mg SEECOM BID Qty: 60 RF: 11 amlodipine 5 mg tablet 5 mg PO DAILY Qty: 90 RF: 0 levetiracetam 1,000 mg tablet 1,000 mg PO Q12H Qty: 60 RF: 2
[2020-07-18 13:53] LABS: Add Manual Diff / Slide Review NO; Basophils Absolute Auto 0 /uL (0-100); Basophils Percent Auto 0.4 % (0-2); Eosinophils Absolute Auto 100 /uL (0-450); Eosinophils Percent Auto 0.7 % (2-4); Hematocrit 41.6 % (36-46); Lymphocytes Absolute Auto 1100 /uL (1100-4500); Lymphocytes Percent Auto 13.9 % (25-40); Mean Corpuscular HGB Conc 33.5 % (30-36); Mean Corpuscular Hemoglobin 32.9 PG (26-34); Mean Corpuscular Volume 98.2 fL (80-100); Monocytes Absolute Auto 500 /uL (0-900); Monocytes Percent Auto 6.3 % (3-14); Neutrophils Absolute Auto 6400 /uL (1500-7000); Neutrophils Percent Auto 78.7 % (50-75); Platelet Count 206 X10^3/uL (150-400); Red Blood Cell Count 4.24 X10^6/uL (4.0-5.2); Red Cell Distribution Width 12.7 % (11.6-14.8); White Blood Cell Count 8.1 X10^3/uL (4.5-11.0)
[2020-07-18] MEDS: levETIRAcetam 1,500 MG in SODIUM CHLORIDE 0.9% 100 ML 460 ML IV (13:55)
[2020-07-18] MEDS: SODIUM CHLORIDE 0.9% 1,000 ML 1000 ML IV (13:56)
[2020-07-18 14:02] LABS: Creatine Kinase 78 U/L (30-135)
[2020-07-18 14:03] LABS: BUN Creatinine Ratio 24.3 (6-22); Blood Urea Nitrogen 17 mg/dL (7-17); Calcium 9.4 mg/dL (8.4-10.2); Carbon Dioxide 22 mmol/L (22-32); Chloride 102 mmol/L (98-107); Estimated Glomerular Filt Rate > 60.0 mL/min (>60); Glucose 165 mg/dL (80-110); HEMOLYSIS < 15 (0-50); Potassium 4.1 mmol/L (3.4-5.1); Sodium 135 mmol/L (137-145)
[2020-07-18 14:15] LABS: Troponin I < 0.012 ng/mL (0.01-0.034)
--- NOTE | 2020-07-18 14:17 | CM.MNRNOTE ---
Pt is speaking one word answers at this time
[2020-07-18 14:19] LABS: Prolactin 62.5 ng/mL (3.0-18.6)
[2020-07-18 14:20] LABS: Appearance Urine UA CLEAR; Bilirubin Urine UA NEGATIVE (NEGATIVE); Color Urine UA YELLOW; Glucose Urine UA NEGATIVE (Negative); Ketones Urine UA NEGATIVE (NEGATIVE); Leukocyte Esterase Urine UA NEGATIVE (NEGATIVE); Nitrite Urine UA NEGATIVE (Negative); Occult Blood Urine UA NEGATIVE (Negative); Protein Urine UA 1+ (Negative); Urobilinogen Urine UA 0.2 E.U./dL (0.2)
[2020-07-18 14:25] LABS: UR Morphine/Opiate cutoff 300 Negative (Negative); Ur Creatinine Normal (Normal); Ur Specific Gravity Normal (Normal); Urine Amphetamines Negative (Negative); Urine Barbiturates Negative (Negative); Urine Benzodiazepines Negative (Negative); Urine Cocaine Negative (Negative); Urine MDMA Negative (Negative); Urine Methadone Negative (Negative); Urine Methamphetamines Negative (Negative); Urine Oxycodone Negative (Negative); Urine Phencyclidine Negative (Negative); Urine Tetrahydrocannabinol Negative (Negative); Urine Tricyclic Antidepressant Negative (Negative); Urine pH Normal (Normal)
--- NOTE | 2020-07-18 14:38 | DI.CT.S_ITS ---
PROCEDURE: CT HEAD/BRAIN WO CON INDICATIONS: seizure activity TECHNIQUE: Noncontrast 4.5 mm thick angled axial sections acquired from the foramen magnum to the vertex, with coronal and sagittal reformats. For radiation dose reduction, the following was used: automated exposure control, adjustment of mA and/or kV according to patient size. COMPARISON: [facility], CT, CT HEAD/BRAIN WO CON, 08/29/2017, 21:56. FINDINGS: Image quality: Excellent. CSF spaces: Basal cisterns are patent. No extra-axial fluid collections. Ventricles are normal in size and shape. Brain: No midline shift. No intracranial masses or hemorrhage. Alonzo-white matter interface is normal. There is mild cerebral volume loss for age with mild ventricular and sulcal prominence. There is mild periventricular and deep white matter hypoattenuation. These findings are not significantly changed from prior exam. Skull and face: Calvarium and visualized facial bones are intact, without suspicious lesions. Sinuses: Visualized sinuses and mastoids are clear. IMPRESSION: Findings of mild cerebral volume loss and microvascular ischemic changes not significantly changed from prior examination. No evidence of an acute intracranial abnormality or findings to explain seizure activity. Dictated by: Romeo Castano D.O. on 07/18/2020 at 14:32 Approved by: Romeo Castano D.O. on 07/18/2020 at 14:35
[2020-07-18] MEDS: LORazepam 2 MG/ML INJ 1 MG IV (15:00)
[2020-07-18 17:08] LABS: Troponin I 0.052 ng/mL (0.01-0.034)
[2020-07-18 18:06] LABS: COVID19 -Nasal RAPID Negative (Negative)
--- NOTE | 2020-07-18 18:55 | PC.NURSE ---
Report called to MICHAEL Feng at [facility]. [id number] rm [id number]
--- NOTE | 2020-07-18 18:57 | PC.NURSE ---
Pt's Joaquin called and informed of RM number and visitor policy
== END 2020-07-18 20:37 | disposition short-term general hospital (02) ==
PROVIDERS: Emergency Provider Emergency Medicine
DX: G40.909 Epilepsy, unspecified, not intractable, without status epilepticus (principal); R41.82 Altered mental status, unspecified; Z20.822 Contact with and (suspected) exposure to COVID-19
CPT/HCPCS: 36415; 70450; 80048; 80305; 81003; 82550; 82962; 83735; 84146; 84484; 85025; 87635; 93005; 93010; 96365; 96375; 99285; C9803; J1953; J2060

== ENCOUNTER → 2020-09-30 14:19 | Outpatient (CLI) | payer OTHER, SELFPAY ==
--- NOTE | 2020-09-30 | DI.MG.S_ITS ---
BILATERAL DIGITAL SCREENING MAMMOGRAM 3D/2D WITH CAD: 09/30/2020 CLINICAL: Routine screening. Family history of breast cancer. Comparison is made to exams dated: 11/30/2016 mammogram and 07/30/2014 mammogram - [facility]. The tissue of both breasts is heterogeneously dense. This may lower the sensitivity of mammography. Current study was also evaluated with a Computer Aided Detection (CAD) system. No significant masses, calcifications, or other findings are seen in either breast. There has been no significant interval change. IMPRESSION: NEGATIVE There is no mammographic evidence of malignancy. A 1 year screening mammogram is recommended. This exam was interpreted at Station ID: [id number]. NOTE: For mammograms, a report in lay terms will be sent to the patient. Approximately 15% of breast malignancies will not be visualized mammographically. In the management of a palpable breast mass, a negative mammogram must not discourage biopsy of a clinically suspicious lesion. Electronically Signed By: Moe tubbs/tamra:09/30/2020 15:10:45 letter sent: Normal Exam ACR BI-RADS Category 1: Negative [id number]
== END ==
PROVIDERS: PCP Family Medicine; Referring Provider Family Medicine; Visit Provider Family Medicine
DX: Z12.31 Encounter for screening mammogram for malignant neoplasm of breast (principal); Z80.3 Family history of malignant neoplasm of breast
CPT/HCPCS: 77063; 77067

== ENCOUNTER 2023-06-15 19:30 | Emergency (ER) | payer OTHER, SELFPAY ==
[2023-06-15] VITALS (9 sets, daily range): BP systolic 104–143; BP diastolic 52–65; PULSE 50–82; RESP 19–30; TEMP 36.2; O2SAT 92–100
--- NOTE | 2023-06-15 19:41 | DI.RAD.S_ITS ---
PROCEDURE: XR CHEST 1V INDICATIONS: PROLONGED SEIZURE TECHNIQUE: One view of the chest was acquired. COMPARISON: [facility], , CHEST 1 VIEW, 12/02/2015, 14:22. FINDINGS: Surgical changes and devices: None. Lungs and pleura: Lungs are clear. No pleural effusions or pneumothorax. Stable appearance of hyperaeration and upper lobe predominant pulmonary emphysematous changes. Mediastinum: Mediastinal contours appear normal. Heart size is normal. Bones and chest wall: No suspicious bony lesions. Overlying soft tissues appear unremarkable. IMPRESSION: Stable radiographic evaluation of the chest without acute cardiopulmonary abnormalities or focal airspace disease. Dictated by: Sunil Antonio M.D. on 06/15/2023 at 19:09 Approved by: Sunil Antonio M.D. on 06/15/2023 at 19:09
--- NOTE | 2023-06-15 19:41 | DI.CT.S_ITS ---
PROCEDURE: CT HEAD/BRAIN WO CON INDICATIONS: PROLONGED SEIZURE TECHNIQUE: Noncontrast 4.5 mm thick angled axial sections acquired from the foramen magnum to the vertex, with coronal and sagittal reformats. For radiation dose reduction, the following was used: automated exposure control, adjustment of mA and/or kV according to patient size. COMPARISON: [facility], CT, CT HEAD/BRAIN WO CON, 08/29/2017, 21:56. [facility], CT, HEAD WITHOUT CONTRAST, 12/02/2015, 14:15. FINDINGS: Image quality: Diagnostic. CSF spaces: Basal cisterns are patent. No extra-axial fluid collections. The ventricles are symmetric in size and shape. Brain: No intracranial bleeds or masses. There is cerebral volume loss for age, with resultant ventricular and sulcal prominence. There are periventricular and deep white matter chronic small vessel ischemic changes. There is intracranial internal carotid artery atherosclerosis. Skull and face: Calvarium and visualized facial bones appear intact, without suspicious lesions. Sinuses: Visualized sinuses and mastoids are clear. IMPRESSION: 1. CT head without acute intracranial abnormalities or acute calvarial fractures. 2. Age-related senescent changes and sequela of chronic small vessel ischemic disease. 3. No evidence for mass or mass effect. Dictated by: Sunil Antonio M.D. on 06/15/2023 at 19:07 Approved by: Sunil Antonio M.D. on 06/15/2023 at 19:08
--- NOTE | 2023-06-15 19:44 | ED_ITS ---
HPI - Seizure General Chief Complaint: Seizure Stated Complaint: Seizure,history of same Time Seen by Provider: 06/15/23 19:31 History of Present Illness HPI Narrative: 72-year-old female with history of seizure disorder presents by EMS from home for seizure. History obtained from who arrived shortly after EMS dropped patient off. states that this evening just before patient was supposed to take her evening medication she told her she felt ?off?, and like she was going to have a seizure. went to go get the patient's medications but then she began to have seizure activity. Has been approximates approximately 7-8 minutes of seizure activity prior to EMS arrival. When EMS arrived they administered 2 mg of Versed with cessation of seizure activity. Patient is subsequently transported to ER for evaluation. No further seizure activity witnessed EN route. Patient postictal on arrival. She opens her eyes to voice but is confused and not following commands currently. states that patient has been in her usual state of health prior to today. He denies any missed medications or medication changes. Denies recent illnesses. Followed by Neurology at [facility]. He states that she takes lamotrigine 100 mg in the morning and 150 mg at night, levetiracetam 1500 twice daily, and lamotrigine 100 mg twice daily Related Data Home Medications Medication Instructions Recorded Confirmed [Biest] 0.25 mg sublingual BID #8 mL 12/29/16 11/22/17 Previous Rx's Medication Instructions Recorded levothyroxine 50 mcg tablet 0.05 mg PO QAM #90 tabs 01/09/17 liothyronine 5 mcg tablet (Cytomel) 5 mcg PO QAM #90 tabs 01/09/17 [progesterone] 1 mg SEECOM BID #60 drps 02/21/17 amlodipine 5 mg tablet 5 mg PO DAILY #90 tabs 12/11/17 lacosamide 150 mg tablet 150 mg PO BID #60 tabs 06/16/23 levetiracetam 1,000 mg tablet 1,500 mg (1.5 x 1,000 mg) PO Q12H 06/16/23 #60 tabs Allergies Allergy/AdvReac Type Severity Reaction Status Date / Time Sulfa (Sulfonamide Allergy Unknown Verified 07/18/20 13:41 Antibiotics) [SULFA (SULFONAMIDE ANTIBIOTICS)] Review of Systems Review of Systems Narrative: Limited due to patient condition. Patient History Medical History Fibromyalgia (~1993) Hayfever Hypothyroidism Measles Migraines Osteoarthritis Osteoporosis RLS (restless legs syndrome) Seizures (2015) Shoulder pain Surgical History Anesthesia Status post hysterectomy with oophorectomy (1997) Family History Grandmother Heart disease [place] (myocardial infarction) Mother Heart disease DE (myocardial infarction) Brother No problems noted. Brother No problems noted. Father No problems noted. Grandfather No problems noted. Social History Smoking Status: Former smoker Smoking Status: Former smoker Exam Initial Vital Signs Initial Vital Signs: Vital Signs Temperature 97.1 F L 06/15/23 19:53 Pulse Rate 75 06/15/23 19:53 Respiratory Rate 30 H 06/15/23 19:53 Blood Pressure 143/65 H 06/15/23 19:53 Pulse Oximetry 97 06/15/23 19:53 Oxygen Delivery Method Room Air 06/15/23 19:53 Const: Somnolent, arouses to voice, nontoxic in appearance Cardiac: regular rate, regular rhythm RESP: unlabored, clear bilaterally, no wheezing GI: Soft, nontender, nondistended Skin: Warm, Dry, intact, no rashes Neuro: AO x1, CN II-XII grossly intact, moves all extremities Course Orders Ordered: ED Orders 06/16/23 00:53 UA Complete [Urinalysis and Microscopic] Stat Urine Culture Stat Discontinued Medications Acetaminophen (Acetaminophen 325 Mg Tablet) 975 mg PO NOW ONE Stop: 06/16/23 06:34 Last Admin: 06/16/23 06:39 Dose: 975 mg Sodium Chloride (Normal Saline 0.9%) 1,000 mls @ 1,000 mls/hr IV BOLUS ONE Stop: 06/15/23 20:40 Last Infusion: 06/15/23 21:20 Dose: Infused Documented By: Admin: 06/15/23 20:19 Dose: 1,000 mls/hr Documented By: BRIAN Levetiracetam 1,650 mg/ Sodium (Chloride) 116.5 mls @ 466 mls/hr IV NOW ONE Stop: 06/15/23 20:19 Last Infusion: 06/15/23 21:47 Dose: Infused Documented By: Admin: 06/15/23 20:32 Dose: 466 mls/hr Documented By: BRIAN Lamotrigine (Lamotrigine 100 Mg Tablet) 100 mg PO NOW ONE Stop: 06/15/23 21:40 Last Admin: 06/15/23 22:09 Dose: 100 mg Documented By: BRIAN Lorazepam (Lorazepam 2 Mg/Ml Inj) 2 mg IV NOW ONE Stop: 06/15/23 20:16 Last Admin: 06/15/23 20:18 Dose: 2 mg Documented By: BRIAN Vital Signs Vital signs: Vital Signs - 8 hr 06/15/23 23:00 06/15/23 23:00 06/15/23 23:30 Pulse Rate 55 L 50 L Respiratory Rate 29 H 22 Blood Pressure 126/58 L Pulse Oximetry 96 95 Oxygen Delivery Method Room Air Room Air 06/15/23 23:30 06/16/23 00:00 06/16/23 00:01 Pulse Rate 66 Respiratory Rate 18 Blood Pressure 104/52 L 140/66 Pulse Oximetry 97 Oxygen Delivery Method 06/16/23 00:01 06/16/23 00:30 06/16/23 00:30 Pulse Rate 54 L 53 L Respiratory Rate 19 22 Blood Pressure 134/63 Pulse Oximetry 97 97 Oxygen Delivery Method 06/16/23 01:00 06/16/23 01:00 06/16/23 01:30 Pulse Rate 54 L Respiratory Rate 21 Blood Pressure 149/68 H 122/56 L Pulse Oximetry 99 Oxygen Delivery Method Room Air 06/16/23 01:30 06/16/23 02:00 06/16/23 02:00 Pulse Rate 58 L 47 L Respiratory Rate 19 23 Blood Pressure 115/58 L Pulse Oximetry 97 93 Oxygen Delivery Method Room Air 06/16/23 02:30 06/16/23 02:30 06/16/23 03:00 Pulse Rate 50 L 50 L Respiratory Rate 23 20 Blood Pressure 103/52 L Pulse Oximetry 95 97 Oxygen Delivery Method Room Air 06/16/23 03:00 06/16/23 03:30 06/16/23 03:30 Pulse Rate 46 L Respiratory Rate 21 Blood Pressure 133/62 137/62 Pulse Oximetry 97 Oxygen Delivery Method 06/16/23 04:00 06/16/23 04:01 06/16/23 04:01 Pulse Rate 51 L 51 L Respiratory Rate 21 22 Blood Pressure 107/53 L Pulse Oximetry 95 95 Oxygen Delivery Method Room Air 06/16/23 04:30 06/16/23 04:31 06/16/23 04:31 Pulse Rate 48 L 48 L Respiratory Rate 21 21 Blood Pressure 127/61 Pulse Oximetry 96 96 Oxygen Delivery Method Room Air 06/16/23 05:00 06/16/23 05:01 06/16/23 05:01 Pulse Rate 50 L 48 L Respiratory Rate 19 19 Blood Pressure 144/67 H Pulse Oximetry 97 97 Oxygen Delivery Method Room Air 06/16/23 05:30 06/16/23 05:31 06/16/23 05:31 Pulse Rate 50 L 52 L Respiratory Rate 20 21 Blood Pressure 122/60 Pulse Oximetry 96 96 Oxygen Delivery Method Room Air Room Air 06/16/23 06:00 06/16/23 06:00 Pulse Rate 53 L Respiratory Rate 17 Blood Pressure 123/58 L Pulse Oximetry 96 Oxygen Delivery Method Room Air MDM - Seizure Differential Diagnosis Differential diagnosis: Likely intractable seizure disorder, febrile convulsion and focal seizure Lab Data 06/15/23 19:48 06/15/23 19:48 Labs: Lab Results 06/15/23 06/15/23 06/16/23 Range/Units 19:48 21:50 00:53 WBC 7.2 (4.5-11.0) X10^3/uL RBC 4.35 (4.0-5.2) X10^6/uL Hgb 12.9 (12.0-16.0) g/dL Hct 39.2 (36-46) % MCV 90.2 (80-100) fL MCH 29.7 (26-34) PG MCHC 32.9 (30-36) % RDW 13.5 (11.6-14.8) % Plt Count 248 (150-400) X10^3/uL Neut % (Auto) 56.5 (50-75) % Lymph % (Auto) 33.4 (25-40) % [place] % (Auto) 7.3 (3-14) % Eos % (Auto) 2.0 (2-4) % Baso % (Auto) 0.8 (0-2) % Neut # (Auto) 4100 (5900-8089) /uL Lymph # (Auto) 2400 (6363-2157) /uL [place] # (Auto) 500 (0-900) /uL Eos # (Auto) 100 (0-450) /uL Baso # (Auto) 100 (0-100) /uL Sodium 139 (137-145) mmol/L Potassium 3.9 (3.4-5.1) mmol/L Chloride 107 (98-107) mmol/L Carbon Dioxide 20 L (22-32) mmol/L BUN 16 (7-17) mg/dL Creatinine 0.67 (0.52-1.04) mg/dL Estimated GFR > 60 (>60) mL/min BUN/Creatinine Ratio 23.9 H (6-22) Glucose 82 (80-110) mg/dL Lactate 5.0 H* 1.6 (0.7-2.1) mmol/L Calcium 9.1 (8.4-10.2) mg/dL Total Bilirubin 0.4 (0.2-1.3) mg/dL AST 28 (14-36) IU/L ALT 17 (<35) IU/L Alkaline Phosphatase 65 (38-126) U/L Total Protein 7.1 (6.3-8.2) g/dL Albumin 4.4 (3.5-5.0) g/dL Globulin 2.7 (1.7-4.1) g/dL Albumin/Globulin Ratio 1.6 (1.0-2.8) Urine Color Yellow Urine Appearance Clear Urine pH 5.5 (4.5-8.0) Ur Specific [place] 1.015 (1.000-1.035) Urine Protein Negative (Negative) Urine Glucose (UA) Negative (Negative) g/dL Urine Ketones Negative (NEGATIVE) Urine Occult Blood Negative (Negative) Urine Nitrate Negative (Negative) Urine Bilirubin Negative (NEGATIVE) Urine Urobilinogen 0.2 (0.2) E.U./dL Ur Leukocyte Esterase Trace H (NEGATIVE) Urine RBC 0-1/hpf (0-5/HPF) Urine WBC 0-1/hpf (0-5/HPF) Ur Squamous Epith Cells 0-1 /hpf (0-5/HPF) Urine Bacteria Occasional (0-1) (None) Hyaline Casts 0-1/lpf (None) Ur Culture Indicated? Specimen cultured Vol Urine Centrifuged 10ml (spun) Point of Care Testing Glucose POC 101 Imaging Data Chest x-ray: Radiologist's Impression: PROCEDURE: XR CHEST 1V INDICATIONS: PROLONGED SEIZURE TECHNIQUE: One view of the chest was acquired. COMPARISON: [facility], CR, CHEST 1 VIEW, 12/02/2015, 14:22. FINDINGS: Surgical changes and devices: None. Lungs and pleura: Lungs are clear. No pleural effusions or pneumothorax. Stable appearance of hyperaeration and upper lobe predominant pulmonary emphysematous changes. Mediastinum: Mediastinal contours appear normal. Heart size is normal. Bones and chest wall: No suspicious bony lesions. Overlying soft tissues appear unremarkable. IMPRESSION: Stable radiographic evaluation of the chest without acute cardiopulmonary abnormalities or focal airspace disease. Dictated by: Sunil Antonio M.D. on 06/15/2023 at 19:09 Approved by: Sunil Antonio M.D. on 06/15/2023 at 19:09 CT scan - head: Radiologist's Impression: PROCEDURE: CT HEAD/BRAIN WO CON INDICATIONS: PROLONGED SEIZURE TECHNIQUE: Noncontrast 4.5 mm thick angled axial sections acquired from the foramen magnum to the vertex, with coronal and sagittal reformats. For radiation dose reduction, the following was used: automated exposure control, adjustment of mA and/or kV according to patient size. COMPARISON: [facility], CT, CT HEAD/BRAIN WO CON, 08/29/2017, 21:56. [facility], CT, HEAD WITHOUT CONTRAST, 12/02/2015, 14:15. FINDINGS: Image quality: Diagnostic. CSF spaces: Basal cisterns are patent. No extra-axial fluid collections. The ventricles are symmetric in size and shape. Brain: No intracranial bleeds or masses. There is cerebral volume loss for age, with resultant ventricular and sulcal prominence. There are periventricular and deep white matter chronic small vessel ischemic changes. There is intracranial internal carotid artery atherosclerosis. Skull and face: Calvarium and visualized facial bones appear intact, without suspicious lesions. Sinuses: Visualized sinuses and mastoids are clear. IMPRESSION: 1. CT head without acute intracranial abnormalities or acute calvarial fractures. 2. Age-related senescent changes and sequela of chronic small vessel ischemic disease. 3. No evidence for mass or mass effect. Dictated by: Sunil Antonio M.D. on 06/15/2023 at 19:07 Approved by: Sunil Antonio M.D. on 06/15/2023 at 19:08 ECG Data Interpretation: Normal sinus rhythm at 66 beats per minute. Normal PA, normal axis, no ST T wave changes MDM Narrative Medical decision making narrative: Breakthrough seizure in patient with known seizure disorder. Postictal on arrival. Placed on financial officer, pulse ox applied. at bedside. Approximately 35 minutes after patient arrival to ED she had another witnessed seizure. 2 mg of Ativan ordered IV, which subsequently stopped seizure activity. Total length of episode less than 5 minutes. Laboratory work reviewed, no acute abnormalities identified, normal electrolytes. Lactic acid is 5.0, which is expected after seizure. CT brain negative for acute findings, chest x-ray negative for acute findings. Paged on-call Neurology at [facility] for recommendations. In addition we will load with IV Keppra 30 milligrams/kilogram. 2129 -spoke with Dr. Vasquez at [facility] neurology. Based on reviewing patient's chart patient does take several hours to resume speaking after postictal state. She seems to have breakthrough seizures every several years. Agrees with IV Keppra and stated that patient could be transitioned from lacosamide 100 in the morning and 150 mg at night to 150 mg b.i.d. no other medication changes recommended at this time. Patient's mental status improved slowly overnight, returning to baseline. called to pick patient up and bring morning meds. Patient discharged home in stable condition. Critical Care Time Critical Care Time Critical Care Time: Yes Total Critical Care Time: 34 Attestation: Seizure disorder with breakthrough seizure activity requiring IV antiepileptic loading, discussion with on-call Neurology. Discharge Plan Departure Patient Disposition: Home Clinical Impression: Seizure disorder Instructions: DI for Seizure Disorder -- Adult Activity Restrictions/Additional Instructions: I discussed your case with Neurology at [facility]. They recommend that tonight when he got home you take 200 mg of your lacosamide and then starting tomorrow increase the dose to 150 mg twice daily. They recommend that you can keep taking the levetiracetam 1500 twice daily and lamotrigine 100 mg twice daily. Please call your neurologist office to schedule a follow up appointment. Please come back to the emergency department if you have recurrent seizures despite taking your medications. Prescriptions: New lacosamide 150 mg tablet 150 mg PO BID Qty: 60 0RF Changed levetiracetam 1,000 mg tablet 1,500 mg PO Q12H Qty: 60 2RF No Action [Biest] 0.25 mg Sublingual BID Qty: 8 liothyronine [Cytomel] 5 MCG tablet 5 mcg PO QAM Qty: 90 3RF levothyroxine 50 MCG tablet 0.05 mg PO QAM Qty: 90 3RF [progesterone] 1 mg SEECOM BID Qty: 60 11RF amlodipine 5 mg tablet 5 mg PO DAILY Qty: 90 0RF Rx Instructions: please call the office and make an appt for med check with new provider within 90 days. thx Referrals: Michelle Moyer DO [Non-Staff] - Stand Alone Forms: Patient Portal/API
[2023-06-15 19:56] LABS: Add Manual Diff / Slide Review NO; Basophils Absolute Auto 100 /uL (0-100); Basophils Percent Auto 0.8 % (0-2); Eosinophils Absolute Auto 100 /uL (0-450); Hematocrit 39.2 % (36-46); Hemoglobin 12.9 g/dL (12.0-16.0); Lymphocytes Absolute Auto 2400 /uL (1100-4500); Lymphocytes Percent Auto 33.4 % (25-40); Mean Corpuscular HGB Conc 32.9 % (30-36); Mean Corpuscular Hemoglobin 29.7 PG (26-34); Mean Corpuscular Volume 90.2 fL (80-100); Monocytes Absolute Auto 500 /uL (0-900); Monocytes Percent Auto 7.3 % (3-14); Neutrophils Absolute Auto 4100 /uL (1500-7000); Neutrophils Percent Auto 56.5 % (50-75); Platelet Count 248 X10^3/uL (150-400); Red Blood Cell Count 4.35 X10^6/uL (4.0-5.2); Red Cell Distribution Width 13.5 % (11.6-14.8); White Blood Cell Count 7.2 X10^3/uL (4.5-11.0)
[2023-06-15 20:12] LABS: Alanine Aminotransferase 17 IU/L (<35); Albumin 4.4 g/dL (3.5-5.0); Albumin Globulin Ratio 1.6 (1.0-2.8); Alkaline Phosphatase 65 U/L (38-126); Aspartate Aminotransferase 28 IU/L (14-36); BUN Creatinine Ratio 23.9 (6-22); Bilirubin Total 0.4 mg/dL (0.2-1.3); Blood Urea Nitrogen 16 mg/dL (7-17); Calcium 9.1 mg/dL (8.4-10.2); Carbon Dioxide 20 mmol/L (22-32); Chloride 107 mmol/L (98-107); Estimated Glomerular Filt Rate > 60 mL/min (>60); Globulin 2.7 g/dL (1.7-4.1); Glucose 82 mg/dL (80-110); HEMOLYSIS 26 (0-50); Potassium 3.9 mmol/L (3.4-5.1); Sodium 139 mmol/L (137-145); Total Protein 7.1 g/dL (6.3-8.2)
[2023-06-15] MEDS: LORazepam 2 MG/ML INJ IV (20:18)
[2023-06-15] MEDS: SODIUM CHLORIDE 0.9% 1,000 ML 1000 ML IV (20:19)
[2023-06-15] MEDS: SODIUM CHLORIDE 0.9% IV (20:32)
[2023-06-15] MEDS: LEVETIRACETAM IV (20:32)
--- NOTE | 2023-06-15 20:37 | PC.NURSE ---
Pt had seizure witnessed by staff. MD Baker immediately came to bedside. Meds given per MAR. Pt left arm is still slightly shaky, states pt does have a basseline shake d/t current meds.
[2023-06-15 21:27] LABS: Reflexed Lactate in 2 Hours Y
--- NOTE | 2023-06-15 21:53 | PC.NURSE ---
Pt starting to wake up more. Is more responsive and is able to follow some commands. Is confused about year and location. Is able to identify her at bedside and her name.
[2023-06-15 22:09] LABS: Lactate 2HR (Lactic Acid Rflx) 1.6 mmol/L (0.7-2.1)
[2023-06-15] MEDS: lamoTRIgine 100 MG TABLET PO (22:09)
--- NOTE | 2023-06-15 22:41 | PC.NURSE ---
went home but yamila to call when the pt is awake and oriented and ready for discharge.
[2023-06-16] VITALS (22 sets, daily range): BP systolic 103–161; BP diastolic 52–71; PULSE 46–66; RESP 16–23; TEMP 36.8; O2SAT 93–99
[2023-06-16 01:03] LABS: Appearance Urine UA CLEAR; Bilirubin Urine UA NEGATIVE (NEGATIVE); Color Urine UA YELLOW; Glucose Urine UA NEGATIVE (Negative); Ketones Urine UA NEGATIVE (NEGATIVE); Leukocyte Esterase Urine UA TRACE (NEGATIVE); Nitrite Urine UA NEGATIVE (Negative); Occult Blood Urine UA NEGATIVE (Negative); Protein Urine UA NEGATIVE (Negative); Specific Gravity Urine UA 1.015 (1.000-1.035); Urobilinogen Urine UA 0.2 E.U./dL (0.2)
[2023-06-16 01:04] LABS: pH Urine UA 5.5 (4.5-8.0)
[2023-06-16 01:10] LABS: Bacteria Urine Occasional (0-1); Hyaline Casts Urine 0-1/LPF; RBC Urine 0-1/HPF (0-5/HPF); Squamous Epithelial Cell Urine 0-1 /HPF (0-5/HPF); Urine Volume 10mL (spun); WBC Urine 0-1/HPF (0-5/HPF)
[2023-06-16 01:11] LABS: Culture Indicated Urine Specimen Cultured
--- NOTE | 2023-06-16 01:15 | PC.NURSE ---
Pt still unable to answer year and place. Pt is able to identify certain things around the room but is unable to state husbands name or why she came to hospital. Pt was able to ambulate to bathroom with just standby assist. no weakness noted at this time. Pt back in bed, new warm blanket given to pt. Will call again when pt is completely AAOx4 per MD Baker orders.
--- NOTE | 2023-06-16 06:22 | PC.NURSE ---
Pt is able to state name, year, place, and situation. Pt was asking about her medications and able to converse with staff appropriately. to be called to come pepper picker pt for discharge.
--- NOTE | 2023-06-16 06:35 | PC.NURSE ---
on way to hospital, bringing home medications with him for pt.
[2023-06-16] MEDS: ACETAMINOPHEN 325 MG TABLET 975 MG PO (06:39)
== END 2023-06-16 07:38 | disposition home or self-care (01) ==
PROVIDERS: Emergency Provider Emergency Medicine; PCP Family Medicine
DX: G40.909 Epilepsy, unspecified, not intractable, without status epilepticus (principal)
CPT/HCPCS: 36415; 70450; 71045; 80053; 81001; 83605; 85025; 87086; 93005; 93010; 96365; 96375; 99285; J1953; J2060

== ENCOUNTER → 2023-07-01 11:57 | Outpatient (CLI) | payer OTHER, SELFPAY ==
--- NOTE | 2023-07-01 | DI.CT.S_ITS ---
PROCEDURE: CT ABDOMEN PELVIS W CON INDICATIONS: Left lower quadrant abdominal swelling, mass and l TECHNIQUE: After the administration of intravenous and oral contrast, axial sections acquired from the lung bases to the pubic symphysis. Coronal and sagittal reformats were performed. For radiation dose reduction, the following was used: automated exposure control, adjustment of mA and/or kV according to patient size. COMPARISON: None. FINDINGS: Image quality: Diagnostic. Lower Chest: No significant findings. ABDOMEN: Liver: There is and ill-defined area hyperenhancement involving anterior periphery of right hepatic lobe measures approximately 1.3 x 2.1 cm in AP and transverse dimension series 2, image 23. This structure is measures approximately 1.8 cm in craniocaudal dimension series 4, image 23. No other hepatic lesion is seen. Gallbladder: No radiopaque gallstones or wall thickening. Biliary ducts: No biliary dilation. Pancreas: No ductal dilation. Spleen: Size is within normal limits. Adrenal Glands: No adrenal nodules. Kidneys and Ureters: No hydronephrosis. No solid mass. No complex renal cystic lesion which requires follow up. Stomach and Bowel: There is no evidence of bowel obstruction. Significant fecal stasis throughout the colon is seen extending to sigmoid colon and rectum. There is questionable distal rectal wall thickening predominantly involving posterior aspect of rectum and measures approximately 1.9 cm in thickness and 2.3 cm in craniocaudal dimension series 2, image 68 and series 4, image 37. No other area of abnormal bowel wall thickening. No mesenteric fat stranding. No abscess collection. Peritoneum: No abnormal intraperitoneal fluid. No free air. Ventral Wall: No significant ventral hernia. Abdominal Nodes: No retroperitoneal or mesenteric adenopathy by size criteria. Vessels: Aorta and inferior vena cava are normal in size. PELVIS: Pelvic Organs: Unremarkable. Bladder: No bladder wall thickening, accounting for underdistention. Pelvic Nodes: No enlarged lymph nodes. Miscellaneous: No inguinal hernias are seen. Bones: No aggressive osseous abnormality. IMPRESSION: 1. Moderate fecal stasis throughout the colon extending to the distal sigmoid colon/rectum with questionable distal rectal wall thickening as described above which could represent proctitis versus rectal wall mass suggest GI correlation. 2. No gross abnormally enlarged lymph nodes are seen in abdomen or pelvis. 3. Hyper enhancing area involving anterior periphery of right hepatic lobe. Finding is concerning for primary or metastatic hepatic malignancy suggest further evaluation with MRI of abdomen without and with contrast. Dictated by: Elvis Magallon M.D. on 07/02/2023 at 13:23 Approved by: Elvis Magallon M.D. on 07/02/2023 at 13:43
== END ==
PROVIDERS: PCP Family Medicine; Referring Provider Family Medicine; Visit Provider Family Medicine
DX: R19.04 Left lower quadrant abdominal swelling, mass and lump (principal)
CPT/HCPCS: 74177; Q9967

== ENCOUNTER → 2023-09-18 08:25 | Outpatient (CLI) | payer OTHER, SELFPAY ==
--- NOTE | 2023-09-18 08:31 | DI.MRI.S_ITS ---
PROCEDURE: MR ABDOMEN LIVER PROTOCOL INDICATIONS: F/U RT HEPATIC LOBE ABNORMALITY ON CT TECHNIQUE: Coronal HASTE, axial 2D FLASH in- and [id number]; axial breath-hold T2 FSE. Dynamic axial VIBE during the administration of contrast; post-contrast coronal VIBE or 2D FLASH with fat saturation from the hepatic dome to the iliac crests. Optional diffusion weighted imaging and ADC may be performed. COMPARISON: [facility], CT, CT ABDOMEN PELVIS W CON, 07/01/2023, 13:21. FINDINGS: Image quality: Diagnostic Lower chest: Lung bases are unremarkable. Lungs are not well evaluated however on MRI. No basal effusions. Liver: 1.3 cm subcapsular right lobe liver lesion as identified on CT. This is hypervascular with surrounding perfusion all/vascular anomaly. This does not retain Eovist contrast. The T2 signal is hyperintense. Findings are favored represent a capillary hemangioma. Gallbladder and biliary system: Unremarkable, nondilated Pancreas: No ductal dilation. Spleen: Nonenlarged Adrenals: No discrete nodules Kidneys: Suspected small cysts. No solid renal mass. No hydronephrosis. Vessels and lymph nodes: No pathologic lymph nodes by size criteria. No abdominal aortic aneurysm. Bowel and peritoneum: No evidence of small bowel obstruction. No pathologic ascites. There is increased fecal loading. Body wall: Unremarkable Bones: Degenerative changes. 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 Consider follow-up if the patient has a history of primary liver disease or malignancy elsewhere. Dictated by: Tobin Peck M.D. on 09/18/2023 at 10:58 Approved by: Tobin Peck M.D. on 09/18/2023 at 11:06
[2023-09-18 09:05] LABS: Estimated Glomerular Filt Rate > 60 mL/min (>60)
== END ==
LOC: MRI 08:29
PROVIDERS: Specialist; PCP Family Medicine; Referring Provider Family Medicine; Visit Provider Family Medicine
DX: K76.9 Liver disease, unspecified (principal); R93.2 Abnormal findings on diagnostic imaging of liver and biliary tract; J30.1 Allergic rhinitis due to pollen
CPT/HCPCS: 36415; 74183; 82565; A9579